=== PATIENT | female | born 2000 | race Asian ===

== ENCOUNTER 2020-07-18 23:04 | Observation (INO) ==
[2020-07-18] MEDS ORDERED: DICYCLOMINE HCL 10 MG CAP PO ONE (23:40)
[2020-07-18] MEDS ORDERED: KETOROLAC 30 MG/ML VIAL IV STA (23:40)
[2020-07-18] MEDS ORDERED: SODIUM CHLORIDE 0.9% 1000ML 1,000 ML IV ONE (23:40)
--- NOTE | 2020-07-18 23:54 | Emergency Department Note ---
History of Present Illness General Chief Complaint: Abdominal Pain Stated Complaint: ABD PAIN - PAINFUL Time Seen by Provider: 07/18/20 23:21 Source: patient Mode of arrival: ambulatory Limitations: no limitations History of Present Illness Provider Complaint: abdominal pain Onset (ago): greater than 10 hour(s) Pain Consistency: constant Location: suprapubic Radiation: none Migration to: epigastric Severity: moderate Maximum Pain Intensity: 7 Current Pain Intensity: 7 Quality: + cramping and + stabbing Relieved By: + nothing Exacerbated By: + eating and + bowel movement Associated Symptoms: + dysuria Treatments prior to arrival: NSAIDs (200mg ibuprofen 6-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 The patient states the pain began in the suprapubic area this morning and was very mild. It has been intermittent throughout the day, and she lay down to take a nap and was feeling okay when she awoke. She got out of bed to go to the bathroom and developed sudden onset of very severe pain, causing her to bend over in order to ambulate to the bathroom. The patient states she was having difficulty moving her bowels due to the pain and since this time, it has been more constant. The patient states the pain is now radiating throughout the entire abdomen in the upper abdomen, lower abdomen, as well as suprapubically. She describes it as a cramping and sharp sensation, but different than her menstrual cramps. The patient does report pain with bowel movements and dysuria prior to arrival, but when providing a urine sample here in the ED, she did not have any dysuria at that time. The patient states having a bowel movement did seem to make the pain better afterward, but the pain was worse during the bowel movement. She denies any associated diarrhea or constipation. Last menstrual period was 1 month ago. The patient is sexually active with one male partner and does not use protection or contraception. Patient does admit to alcohol use 2 nights ago. She denies any drug or tobacco use. Patient has taken 200 mg ibuprofen approximately 6 to 7 hours prior to arrival without relief. Related Data Date of Last Menstrual Period: 06/20/20 Patient Confirmed : No Home Medications Home Medications Medication Instructions Recorded Confirmed Type dextroamphetamine-amphetamine 20 mg PO QAM 01/15/20 07/19/20 History [Adderall XR] hydroxyzine HCl 25 mg PO Q6 PRN 01/15/20 07/19/20 History cetirizine [Zyrtec] 10 mg PO DAILY 07/19/20 07/19/20 History Allergies Allergy/AdvReac Type Severity Reaction Status Date / Time No Known Allergies Allergy Unverified 01/15/20 16:13 Past Med/Surg History Medical History No pertinent past medical history Surgical History No pertinent past surgical history Family History Other No significant family history Social History Smoking Status: Never smoker Preferred Language: Qatari Feels Safe at Home: Yes Review of Systems A total of 10 systems reviewed and were otherwise negative Physical Exam Vital Signs: Vital Signs - 24 hr 07/18/20 23:09 07/19/20 00:07 07/19/20 01:25 Temperature 36.5 C Temperature Source Oral Pulse Rate 68 Pulse Rate [Finger ] 59 L Respiratory Rate 16 16 Respiratory Effort / Characteristics Non-Labored Sponta neous Respiratory Depth Normal Blood Pressure 112/79 Blood Pressure [Ri ght Arm] 109/68 Blood Pressure Dahlia n 90 Blood Pressure Dahlia n [Right Arm] 81 Pulse Oximetry 100 98 100 Oxygen Delivery Me thod Room Air Room Air Room Air Sepsis Recent Feve r Within 48 Hours No Sepsis New/Unexpla ined Change in Men pacheco Status No Sepsis Action Take n by Nursing No Action Required 07/19/20 03:19 07/19/20 05:11 Temperature Temperature Source Pulse Rate Pulse Rate [Finger ] 59 L 68 Respiratory Rate 16 18 Respiratory Effort / Characteristics Non-Labored Sponta neous Non-Labored Sponta neous Respiratory Depth Normal Normal Blood Pressure Blood Pressure [Ri ght Arm] 113/63 97/49 L Blood Pressure Dahlia n Blood Pressure Dahlia n [Right Arm] 79 65 Pulse Oximetry 100 100 Oxygen Delivery Me thod Room Air Room Air Sepsis Recent Feve r Within 48 Hours Sepsis New/Unexpla ined Change in Men pacheco Status Sepsis Action Take n by Nursing Physical Exam: VITALS: Vitals are noted on the nurse's note and reviewed by myself. Vital signs stable. GENERAL: This is a 19-year-old female, in no acute distress, nondiaphoretic, well-developed well-nourished. SKIN: The skin was without rashes, erythema, edema, or bruising. There is no tenting of the skin. Capillary refill less than 2 seconds. HEAD: Normocephalic atraumatic. EYES: Conjunctivae without injection, sclerae without icterus. NECK: Supple without nuchal rigidity. No lymphadenopathy. No JVD. HEART: Regular rate and rhythm without murmurs gallops or rubs. LUNGS: Clear to auscultation bilaterally without wheezes, rales or rhonchi. No retractions or accessory muscle use. ABDOMEN: Positive bowel sounds x 4. Normal tympanic percussion. Generalized tenderness to palpation. There is guarding diffusely. The abdomen is otherwise without masses or organomegaly. Ortiz sign negative. No rebound tenderness. No CVA tenderness. ADJUNCT PHYSICAL EDUCATION INSTRUCTOR - (An RN nurse engineering technical analyst was present throughout the entire ADJUNCT PHYSICAL EDUCATION INSTRUCTOR procedure.) SPECULUM EXAM: - Water-soluble lubricant was applied to the plastic speculum and inserted into the vagina in a downward fashion towards the location of the cervix. When resistance was met, the speculum was opened to visualize the cervix. The cervical os was closed and without drainage. No lesions, masses, or purulent discharge noted. The speculum was slowly removed to visualize the vaginal christopher. No lesions, masses, or excoriations noted. Pt tolerated the procedure well and voiced no discomfort throughout the procedure. BIMANUAL EXAM: - MONS - Claudy Stage V. No lesions or growths noted. No palpable inguinal lymph nodes. - VULVA - skin color consistent with surrounding structures. No signs of irritation, edema, lesions, growths, or discharge. No vulvar or clitoral adhes ions. No tenderness to palpation. - PERINEUM -no growths or lesions. Skin intact without breakdown or scars. - BARTHOLIN'S GLANDS/SKENE'S GLANDS -no enlargement or discharge noted. No tenderness with palpation. - URETHRA -no erythema, edema, discharge, or blood noted. - VAGINA - [place] and moist without lesions, vesicles, discharge, or growths noted. - CERVIX -no cervical motion tenderness appreciated. - UTERUS - Palpable and tender. - ADNEXA -no masses noted with palpation. The patient was very tender with palpation of the right adnexa. - RECTO-VAGINAL - No fissures, masses, or hemorrhoids visualized on minimal exam. MUSCULOSKELETAL: No muscle atrophy, erythema, or edema noted. Full range of motion without joint tenderness in all extremities. No tenderness to palpation. Normal gait. Strength 5/5 throughout. NEURO: Patient was alert and oriented to person place and time. No focal neurological deficits. Course Course The patient was seen and evaluated as above. An order was placed for continuous cardiac monitoring. The monitor shows a normal sinus rhythm at a rate of 68 bpm. IV access obtained, labs drawn. Patient medicated with p.o. dicyclomine, IV Toradol, IV fluids. CT imaging performed and reviewed by myself and radiologist as noted. Labs reviewed by myself. I discussed the findings with the patient at bedside. She was reassessed. Pelvic examination completed. I discussed the case with Dr. Price, WEED CUTTER. He is requesting an ultrasound of the pelvis to further evaluate the hemoperitoneum and ovarian cyst. Ultrasound completed and reviewed by myself and radiologist as noted. I again discussed the case with Dr. Price. He will see the patient and likely be taking her to the OR. I discussed this recommendation with the patient at bedside. I discussed the case with my attending. The patient was seen by Dr. Price. He will be taking the patient to the OR. Please see his dictation for ongoing management and care. Administered Medications Discontinued Medications Dicyclomine HCl (Dicyclomine Hcl 10 Mg Cap) 20 mg PO NOW ONE Stop: 07/18/20 23:41 Last Admin: 07/19/20 00:08 Dose: 20 mg Documented by: [id number] Sodium Chloride (Nss 1000ml) 1,000 mls @ 999 mls/hr IV .Q1H1M ONE Stop: 07/19/20 00:40 Last Infusion: 07/19/20 01:24 Dose: 0 mls/hr Documented by: [id number] Admin: 07/19/20 00:08 Dose: 999 mls/hr Documented by: [id number] Ioversol (Ioversol 100ml) 93 ml IV ONCE ONE Stop: 07/19/20 02:40 Last Admin: 07/19/20 02:39 Dose: 93 ml Documented by: [id number] Ketorolac Tromethamine (Ketorolac 30 Mg/Ml Vial) 30 mg IV NOW STA Stop: 07/18/20 23:41 Last Admin: 07/19/20 00:08 Dose: 30 mg Documented by: [id number] Medical Decision Making Differential Diagnosis + peptic ulcer disease, + biliary pathology, + UTI, + obstruction, + mesenteric ischemia, + aortic pathology, + infections, + inflammatory bowel disease, + renal colic, + ectopic (female), + ovarian torsion (female), + tubo- ovarian abscesses (female), + pelvic inflammatory disease (female), + abdominal pain, + appendicitis, + calculus of kidney, + constipation, + diverticulitis, + endometriosis, + gastroenteritis, + pancreatitis and + small bowel obstruction Medical Records Attestation: I reviewed the patient's medical records. Home Medications Current Medication List: was personally reviewed by me Laboratory Data Attestation: I reviewed the patient's lab results. Mild leukocytosis of 11,000. No anemia or thrombocytopenia. Renal, hepatic fu nction and electrolytes without significant abnormality. Lipase 68. Urinalysis negative. Urine test negative. Result diagrams: 07/18/20 23:56 07/18/20 23:56 Lab Results 07/18/20 07/18/20 07/18/20 Range/Units 23:56 23:56 23:56 WBC 11.52 H (4.8-10.8) K/uL RBC 4.25 (4.2-5.4) M/uL Hgb 12.9 (12.0-16.0) g/dL Hct 39.2 (37-47) % MCV 92.2 (80-100) fL MCH 30.4 (25-34) pg MCHC 32.9 (32-36) g/dL RDW Std Deviation 44.2 (36.4-46.3) fL RDW Coeff of Nicole 13.1 (11.5-14.5) % Plt Count 270 (130-400) K/uL MPV 9.3 (7.4-10.4) fL Immature Gran % (Auto) 0.3 % Neut % (Auto) 74.8 % Lymph % (Auto) 17.5 % Porter % (Auto) 5.7 % Eos % (Auto) 1.6 % Baso % (Auto) 0.1 % Neut # (Auto) 8.61 H (1.4-6.5) K/uL Lymph # (Auto) 2.02 (1.2-3.4) K/uL Porter # (Auto) 0.66 H (0.11-0.59) K/uL Eos # (Auto) 0.19 (0-0.5) K/uL Baso # (Auto) 0.01 (0-0.2) K/uL Immature Gran # (Auto) 0.03 H (0.00-0.02) K/uL Sodium 142 (136-145) mmol/L Potassium 4.0 (3.5-5.1) mmol/L Chloride 109 H (98-107) mmol/L Carbon Dioxide 28 (21-32) mmol/L Anion Gap 5.0 (3-11) BUN 12 (7-18) mg/dl Creatinine 0.83 (0.6-1.2) mg/dl Est Cr Clr Drug Dosing 91.6 ml/min Est GFR ( Amer) 117.7 Est GFR (Non-Af Amer) 101.5 BUN/Creatinine Ratio 14.1 (10-20) Glucose 100 H (70-99) mg/dl Calcium 9.2 (8.5-10.1) mg/dl Total Bilirubin 0.3 (0.2-1) mg/dl AST 9 L (15-37) U/L ALT 15 (12-78) U/L Alkaline Phosphatase 52 (45-117) U/L Total Protein 7.0 (6.4-8.2) gm/dl Albumin 3.6 (3.4-5.0) gm/dl Globulin 3.4 (2.5-4.0) gm/dl Albumin/Globulin Ratio 1.0 (0.9-2) Lipase 68 L (73-393) U/L Urine Color Yellow Urine Appearance Clear (Clear) Urine pH 6.5 (4.5-7.5) Ur Specific [place] 1.044 H (1.000-1.030) Urine Protein Negative (Negative) Urine Glucose (UA) Negative (Negative) Urine Ketones Negative (Negative) Urine Blood Negative (Negative) Urine Nitrite Negative (Negative) Urine Bilirubin Negative (Negative) Urine Urobilinogen Negative (Negative) Ur Leukocyte Esterase Negative (Negative) POC Ur Test (NEG) 07/18/20 Range/Units 23:56 WBC (4.8-10.8) K/uL RBC (4.2-5.4) M/uL Hgb (12.0-16.0) g/dL Hct (37-47) % MCV (80-100) fL MCH (25-34) pg MCHC (32-36) g/dL RDW Std Deviation (36.4-46.3) fL RDW Coeff of Nicole (11.5-14.5) % Plt Count (130-400) K/uL MPV (7.4-10.4) fL Immature Gran % (Auto) % Neut % (Auto) % Lymph % (Auto) % Porter % (Auto) % Eos % (Auto) % Baso % (Auto) % Neut # (Auto) (1.4-6.5) K/uL Lymph # (Auto) (1.2-3.4) K/uL Porter # (Auto) (0.11-0.59) K/uL Eos # (Auto) (0-0.5) K/uL Baso # (Auto) (0-0.2) K/uL Immature Gran # (Auto) (0.00-0.02) K/uL Sodium (136-145) mmol/L Potassium (3.5-5.1) mmol/L Chloride (98-107) mmol/L Carbon Dioxide (21-32) mmol/L Anion Gap (3-11) BUN (7-18) mg/dl Creatinine (0.6-1.2) mg/dl Est Cr Clr Drug Dosing ml/min Est GFR ( Amer) Est GFR (Non-Af Amer) BUN/Creatinine Ratio (10-20) Glucose (70-99) mg/dl Calcium (8.5-10.1) mg/dl Total Bilirubin (0.2-1) mg/dl AST (15-37) U/L ALT (12-78) U/L Alkaline Phosphatase (45-117) U/L Total Protein (6.4-8.2) gm/dl Albumin (3.4-5.0) gm/dl Globulin (2.5-4.0) gm/dl Albumin/Globulin Ratio (0.9-2) Lipase (73-393) U/L Urine Color Urine Appearance (Clear) Urine pH (4.5-7.5) Ur Specific [place] (1.000-1.030) Urine Protein (Negative) Urine Glucose (UA) (Negative) Urine Ketones (Negative) Urine Blood (Negative) Urine Nitrite (Negative) Urine Bilirubin (Negative) Urine Urobilinogen (Negative) Ur Leukocyte Esterase (Negative) POC Ur Test NEG (NEG) Imaging Data Radiologist's Impression: CT ABDOMEN & PELVIS With Contrast: Findings are most compatible with hemoperitoneum secondaryto a ruptured ovarian cyst. Small to moderate free fluid in abdomen and pelvis, denser than simple fluid and with densest fluid in pelvis. There is a 2.8 cm right ovarian cyst with focal peripheral enhancement versus active extravasation. Appendix is normal in caliber. No free air. No bowel obstruction. The liver, spleen, pancreas, gallbladder and kidneys are unremarkable. Radiologist: Elias Forde MD US PELVIS: Comparison:CT abdomen and pelvis earlier same day Right ovarian complex cyst measuring up to 3.4 cm. Left ovary is within normal limits. Blood flow demonstrated in bilateral ovaries. Complex free fluid, compatible with hemoperitoneum. The uterus is normal in size. The endometrium is normal in thickness, measuring 9 mm. Radiologist: Elias Forde MD Blood Pressure Blood Pressure Findings: Normal blood pressure MDM Narrative This 19-year-old female patient presents to the emergency department today for evaluation of abdominal pain. The pain has been waxing and waning, but started very mild yesterday morning. Symptoms have been progressively worsening throughout the day and she had a very severe episode of pain while walking to the bathroom after a nap this evening. This prompted her to come to the emergency department. Patient symptoms did seem to be associated with some cramping and bowel movements, and has now spread more diffusely throughout the abdomen, so initial concern for GI etiology. Patient was medicated with p.o. dicyclomine and IV Toradol. CT imaging completed and consistent with a 2.8 cm right ovarian cyst with focal peripheral enhancement versus active extravasation as well as a small to moderate amount of free fluid in the abdomen and pelvis most compatible with hemoperitoneum. This is thought to be from a ruptured ovarian cyst. I did discuss case with the WEED CUTTER who requested a pelvic ultra sound to be completed. This was completed and consistent with CT findings. The patient was seen by the WEED CUTTER and will go to the operating room for further management. Please see WEED CUTTER dictation regarding ongoing management and care as well as final disposition of this patient. The chart was completed utilizing Q Interactive Speech voice recognition software. Grammatical errors, random word insertions, pronoun errors, and incomplete sentences are an occasional consequence of this system due to software limitations, ambient noise, and hardware issues. Any formal questions or concerns about the content, text, or information contained within the body of this dictation should be directly addressed to the provider for clarification. Impression & Plan Abdominal pain, Hemoperitoneum, Hemorrhagic ovarian cyst Discharge Plan Visit Data Chief Complaint: Abdominal Pain Stated Complaint: ABD PAIN - PAINFUL ED Provider: Allyn Hernandez ED Midlevel Provider: Melisa Bustos Discharge Problem: Abdominal pain, Hemoperitoneum, Hemorrhagic ovarian cyst Patient Disposition: Being Evaluated by Surgeon Forms Stand Alone Forms: [facility] Prescriptions Prescriptions: No Action cetirizine [Zyrtec] 10 mg tablet 10 mg PO DAILY RF: 0 dextroamphetamine-amphetamine [Adderall XR] 20 mg Capsule,Extended Release 24hr 20 mg PO QAM RF: 0 hydroxyzine HCl 25 mg Tablet 25 mg PO Q6 PRN (Reason: Anxiety) RF: 0 Referrals Referrals: Devaughn Duncan MD [Primary Care Provider] -
[2020-07-19 00:09] LABS: Appearance Urine Clear (Clear); Bilirubin Urine Negative (Negative); Blood Urine Negative (Negative); Color Urine Yellow; Glucose Urine UA Negative (Negative); Ketones Urine Negative (Negative); Leukocyte Esterase Urine Negative (Negative); Nitrite Urine Negative (Negative); Protein Urine Negative (Negative); Specific Gravity Urine 1.044 (1.000-1.030); Urobilinogen Urine Negative (Negative); pH Urine 6.5 (4.5-7.5)
[2020-07-19 00:12] LABS: Basophils # (auto) 0.01 K/uL (0-0.2); Basophils % (auto) 0.1 %; Eosinophils # (auto) 0.19 K/uL (0-0.5); Eosinophils % (auto) 1.6 %; Hematocrit (blood only) 39.2 % (37-47); Hemoglobin 12.9 g/dL (12.0-16.0); Immature Granulocytes # (auto) 0.03 K/uL (0.00-0.02); Immature Granulocytes % (auto) 0.3 %; Lymphocytes # (auto) 2.02 K/uL (1.2-3.4); Lymphocytes % (auto) 17.5 %; Mean Corpuscular Hemoglobin 30.4 pg (25-34); Mean Corpuscular Hgb Conc 32.9 g/dL (32-36); Mean Corpuscular Volume 92.2 fL (80-100); Mean Platelet Volume 9.3 fL (7.4-10.4); Monocytes # (auto) 0.66 K/uL (0.11-0.59); Monocytes % (auto) 5.7 %; Neutrophils # (auto) 8.61 K/uL (1.4-6.5); Neutrophils % (auto) 74.8 %; Platelet Count 270 K/uL (130-400); RDW Coefficient of Variation 13.1 % (11.5-14.5); RDW Standard Deviation 44.2 fL (36.4-46.3); Red Blood Count 4.25 M/uL (4.2-5.4); White Blood Count 11.52 K/uL (4.8-10.8)
[2020-07-19 00:28] LABS: Albumin Level 3.6 gm/dl (3.4-5.0); BUN Creatinine Ratio 14.1 (10-20); Calcium 9.2 mg/dl (8.5-10.1); Creatinine Clr Calc Pharmacy 91.6 ml/min; Est GFR (African American) 117.7; Est GFR (Non-African American) 101.5
[2020-07-19 00:31] LABS: Bilirubin,Total 0.3 mg/dl (0.2-1); Globulin 3.4 gm/dl (2.5-4.0)
[2020-07-19] MEDS ORDERED: IOVERSOL 100ml IV ONE (02:39)
[2020-07-19] MEDS ORDERED: MIDAZOLAM HCL 1 MG/ML 2ML VIAL ONE (07:38)
[2020-07-19] MEDS ORDERED: fentaNYL citrate 100 MCG/2 ML VIAL ONE (07:38)
[2020-07-19] MEDS ORDERED: ONDANSETRON INJ 2 MG/ML 2 ML VIAL ONE (07:38)
[2020-07-19] MEDS ORDERED: DEXAMETHASONE SOD INJ 4 MG/ML VIAL ONE (07:38)
[2020-07-19] MEDS ORDERED: LIDOCAINE HCL 2% 2 ML VIAL/AMP(20MG/ML) INFIL ONE (07:38)
[2020-07-19] MEDS ORDERED: GLYCOPYRROLATE 0.2 MG/ML VIAL ONE (07:38)
[2020-07-19] MEDS ORDERED: PROPOFOL IV EMULSION 10 MG/ML 20 ML VIAL IV ONE (07:38)
[2020-07-19] MEDS ORDERED: NEOSTIGMINE METHYLSULFATE 5 MG/5 ML SYR ONE (07:38)
--- NOTE | 2020-07-19 07:54 | Anesthesiology Consultation ---
Date of Service July 19, 2020 Assessment & Plan ASA ASA2E Proposed Anesthesia Anesthesia Type: General Risk / Benefits Reviewed With: PT / POA / Parent / Guardian, Accepts Plan and Informed Consent Obtained History Surgery Operation Date: 07/19/20 08:00 Proposed Procedures p Diafnostic Laparoscopy, Evacuation of Hemoperitoneum, Ruptured Right Ovarian Cyst - Lee Price MD Height/Weight Height: 5 ft 1 in Weight: 62.5 kg Allergies Allergy/AdvReac Type Severity Reaction Status Date / Time No Known Allergies Allergy Unverified 01/15/20 16:13 Medications Home Medications Medication Instructions Recorded Confirmed Last Taken dextroamphetamine-amphetamine 20 mg PO QAM 01/15/20 07/19/20 01/15/20 [Adderall XR] hydroxyzine HCl 25 mg PO Q6 PRN 01/15/20 07/19/20 Unknown cetirizine [Zyrtec] 10 mg PO DAILY 07/19/20 07/19/20 Unknown Past Medical History Medical History No pertinent past medical history Exercise / Class Metabolic Activity II 4-5 Yardwork/Stairs/Walk up hill Past Family History Family History Other No significant family history Past Surgical History Surgical History No pertinent past surgical history Past Anesthesia History No Hx of Anesthesia Complications and No Family Hx of Anesthesia Complications History of PONV No Hx of PONV and No Hx of Motion Sickness Social History Smoking Status: Never smoker Review of Systems denies fever/cough/ colds/ chest pain/ SOB/ SHAE Constitutional: no fever and no chills Respiratory: no cough and no dyspnea denies SHAE Cardiovascular: no chest pain and no dyspnea on exertion Physical Exam Vital Signs Last Vital Signs Temp 36.5 C 07/18/20 23:09 Pulse 62 07/19/20 07:39 Resp 18 07/19/20 07:39 BP 109/57 L 07/19/20 07:39 Pulse Ox 100 07/19/20 07:39 ENMT Mouth: + small oral opening; no TMJ abnormality and no dentition abnormality Thyromental Distance: < 3.5 Finger Breadths Mallampati Class: II Neck neck extension not limited Respiratory normal respiratory effort; no respiratory distress Auscultation: lungs clear to auscultation bilaterally Cardiovascular Rate/Rhythm: regular rate and regular rhythm Neurologic moves all extremities Psychiatric Orientation: alert and oriented x 3 Testing Laboratory Results 07/18/20 23:56 10 23:56 Urine Color Yellow 07/18/20 23:56 Urine Appearance Clear (Clear) 07/18/20 23:56 Urine pH 6.5 (4.5-7.5) 07/18/20 23:56 Ur Specific [place] 1.044 (1.000-1.030) H 07/18/20 23:56 Urine Protein Negative (Negative) 07/18/20 23:56 Urine Glucose (UA) Negative (Negative) 07/18/20 23:56 Urine Ketones Negative (Negative) 07/18/20 23:56 Urine Nitrite Negative (Negative) 07/18/20 23:56 Ur Leukocyte Esterase Negative (Negative) 07/18/20 23:56 07/18/20 23:56 POC Ur Test NEG
[2020-07-19] MEDS ORDERED: ATROPINE SULFATE 0.1 MG/ML 10ML SYR IV PRN (07:55)
[2020-07-19] MEDS ORDERED: HYDROmorphone INJ 2 MG/ML SYR/VIAL IV PRN (07:55)
[2020-07-19] MEDS ORDERED: ONDANSETRON INJ 2 MG/ML 2 ML VIAL IV PRN ×2 (07:55→07:58)
[2020-07-19] MEDS ORDERED: ePHEDrine sulfate 50 MG/ML AMP IV PRN (07:55)
[2020-07-19] MEDS ORDERED: fentaNYL citrate 100 MCG/2 ML VIAL IV PRN (07:55)
[2020-07-19] MEDS ORDERED: PROMETHAZINE HCL 12.5 MG in SODIUM CHLORIDE 0.9% 50 ML IV PRN (07:55)
[2020-07-19] MEDS ORDERED: BUPIVACAINE 0.5 % 5 MG/1 ML MPF 30ML VIAL ONE (07:56)
--- NOTE | 2020-07-19 08:04 | History & Physical Report ---
Date of Service July 19, 2020 Assessment & Plan (1) Abdominal pain: (2) Hemorrhagic ovarian cyst: Laparoscopy with evacuation of hemoperitoneum Present on Admission?: Yes (3) No pertinent past surgical history: (4) No pertinent past medical history: History of Present Illness 19 F P0000 LMP 5 weeks ago who presents to ER with lower abdominal pain and noted this after having intercourse yesterday morning. She is not on control and her test is negative. No significant past medical history. Had Covid-19 in January of this year. Primary Care Provider: Devaughn Duncan MD Allergies Allergy/AdvReac Type Severity Reaction Status Date / Time No Known Allergies Allergy Unverified 01/15/20 16:13 Home Medications Home Medications Medication Instructions Recorded Confirmed Type dextroamphetamine-amphetamine 20 mg PO QAM 01/15/20 07/19/20 History [Adderall XR] hydroxyzine HCl 25 mg PO Q6 PRN 01/15/20 07/19/20 History cetirizine [Zyrtec] 10 mg PO DAILY 07/19/20 07/19/20 History Past Med/Surg History Medical History (Updated 07/19/20 @ 08:04 by Lee Price MD) No pertinent past medical history Surgical History No pertinent past surgical history Family History Other No significant family history Social History Smoking Status: Never smoker Preferred Language: Persian Feels Safe at Home: Yes Review of Systems Review of Systems: All systems reviewed & are unremarkable except as noted in HPI & below abdominal pain generalized with more pain on right than left Physical Exam Constitutional: WD/WN, vitals as above comfortable Results & Data Results & Data ([facility]) Vital Signs (Past 12 Hours) Vital Signs Temp Pulse Pulse Resp BP BP Pulse Ox 07/19/20 07:39 62 18 109/57 L 100 07/19/20 05:11 68 18 97/49 L 100 07/19/20 03:19 59 L 16 113/63 100 07/19/20 01:25 59 L 16 109/68 100 07/19/20 00:07 98 07/18/20 23:09 36.5 C 68 16 112/79 100 Code Status & VTE Plan VTE Prophylaxis Plan VTE Prophylaxis will be ordered: No (1) Abdominal pain Abdominal location: generalized Qualified Code(s): R10.84 - Generalized abdominal pain
--- NOTE | 2020-07-19 08:07 | CT Scan Report ---
ABDOMEN AND PELVIS CT WITH IV AND ORAL CONTRAST CT DOSE: 305.84 mGy.cm HISTORY: Generalized abdominal pain. TECHNIQUE: Multiaxial CT images of the abdomen and pelvis were performed following the use of intrave nous and oral contrast. A dose lowering technique was utilized adhering to the principles of ALARA. COMPARISON STUDY: None. FINDINGS: The lung bases are clear. No pneumoperitoneum. No pneumatosis. No fractures within the visu alized osseous structures. The liver, gallbladder, spleen, adrenal glands, pancreas, and kidneys are within normal limits. No hydronephrosis. No retroperitoneal lymphadenopathy. The bladder is unremarka ble. The uterus and left ovary are within normal limits. There is a 2.6 cm hypodense lesion within th e right ovary likely representing a cyst. This demonstrates a small amount of peripheral enhancement versus less likely active extravasation. There is a small to moderate amount of hemoperitoneum seen w ithin the pelvis along the paracolic gutters and within the perihepatic/perisplenic locations. IMPRESSION: 1. Small to moderate hemoperitoneum. 2. There is a 2.2 cm hypodense lesion within the right adnexa likely representing an ovarian cyst. Th is demonstrates a small amount of peripheral enhancement versus less likely active extravasation. The refore, these findings are likely secondary to a ruptured ovarian cyst. Recommend correlation with be ta-hCG to exclude the possibility of a ruptured ectopic . ACT 112: Negative or not required by law. Electronically signed by: Chago Caruso M.D. 07/19/2020 8:06 AM
--- NOTE | 2020-07-19 08:52 | XRay Report ---
XR KUB/Abdomen 1 view CLINICAL HISTORY: Abdominal pain COMPARISON STUDY: No previous studies for comparison. FINDINGS: There are no transition zones indicate bowel obstruction. There is no pathologic bowel dila tation. There are scattered colonic stool. No abnormal abdominal calcifications are visualized. IMPRESSION: Nonobstructive bowel gas pattern. ACT 112: Negative or not required by law. Electronically signed by: Herrera Staton M.D. 07/19/2020 8:51 AM
--- NOTE | 2020-07-19 08:56 | History and Physical Report ---
DATE OF ADMISSION: 07/19/2020 REASON FOR ADMISSION AND CHIEF COMPLAINT: Abdominal pain. HISTORY OF PRESENT ILLNESS: The patient is a 19-year-old female 0, para 0, last menstrual period about 5 weeks ago. Her test is negative. She presents with right-sided abdominal pain and vague abdominal pain. She had intercourse yesterday in the morning, pain subsequently followed this. She was sent to the ER with pain, some mild discomfort and some mild difficulty in breathing secondary to her pain. PAST MEDICAL HISTORY: Significant for COVID being positive in January. PAST SURGICAL HISTORY: Negative. REVIEW OF SYSTEMS: She denies any nausea, vomiting, diarrhea or constipation. No control use currently. No urinary symptoms at the present time. Pain is generalized in the abdomen with more pain on the right than in the left. SOCIAL HISTORY: Denies smoking or drug use and admits to alcohol use. MEDICATIONS: None currently. Home medications include Zyrtec 10 mg p.o. daily, Adderall 20 mg p.o. q.a.m. as needed and hydroxyzine 25 mg p.o. every 6 hours as needed. ALLERGIES: No known drug allergies. LABORATORIES: White blood cell count 11.5, hemoglobin is 12.9, hematocrit is 39.2, platelet count is 270. Her test is negative. COVID test is pending. She did have a positive COVID test in January of this year. IMAGING STUDIES: CT scan of the abdomen and pelvis and an ultrasound were done. These both revealed hemoperitoneum with appearance of a ruptured right hemorrhagic ovarian cyst. Otherwise, uterus and remainder of the study were negative. PHYSICAL EXAMINATION: VITAL SIGNS: Blood pressure is 97/49, pulse of 68, respiration 18, temperature 36.5, O2 sat 100 on room air. HEENT: Within normal limits. LUNGS: Clear to auscultation. CARDIOVASCULAR: Regular rate and rhythm. ABDOMEN: Soft, but there is some tenderness in all 4 quadrants and there is some lower tenderness on the right, specifically with some guarding noted. EXTREMITIES: Within normal limits. No edema. Negative Homans. NEUROLOGICAL: Intact. ASSESSMENT: Probable hemorrhagic right ovarian cyst with hemoperitoneum. PLAN: Operative laparoscopy with the evacuation of hemoperitoneum and control of bleeding of the ovary. This plan was discussed with the patient and her partner in detail. Consents were signed and a COVID test will be done preop.
--- NOTE | 2020-07-19 09:02 | Ultrasound Report ---
EXAMINATION: PELVIC ULTRASOUND CLINICAL HISTORY: Hemoperitoneum. COMPARISON STUDY: CT scan the abdomen and pelvis dated 07/19/2020. FINDINGS: The uterus measured 7.5 x 4.1 x 4.8 cm. The endometrial stripe measured 9 mm. The right ovary measured 53 x 38 x 29 mm.. There is a thick-walled complex 34 mm right ovarian cyst. The left ovary measured 41 x 18 x 20 mm.. There is no ultrasonographic evidence of ovarian torsion. It should be noted that ovarian torsion can be present with normal Doppler ultrasonographic findings. There is free fluid visualized within both adnexal regions and cul-de-sac. The fluid appeared complex , possibly hemorrhagic. IMPRESSION: 1. No uterine abnormalities identified 2. Complex free fluid possibly hemorrhagic 3. 34 mm complex right ovarian cyst ACT 112: Negative or not required by law. Electronically signed by: Herrera Staton M.D. 07/19/2020 9:01 AM
[2020-07-19] MEDS ORDERED: FLOSEAL HEMOSTATIC MATRIX 10ML TOP ONE (09:13)
--- NOTE | 2020-07-19 09:41 | Post Operative Brief Note ---
Immediate Post Op Note v1 Date of Surgery July 19, 2020 Pre & Post Diagnosis Operation Date: 07/19/20 08:00 Pre-Op Diagnosis: Ruptured Right Ovarian Cyst, hemoperitoneum Post-Op Diagnosis: Ruptured Right Ovarian Cyst, hemoperitoneum I identified the patient and participated in the time-out.: Yes Procedure Operation Date: 07/19/20 08:00 Actual ProcedurE Operative laparoscopy with evacuation of hemoperitoneum, bipolar cautery of hemorrhagic right ovarian cyst Lee Price MD Surgeon Lee Price MD Screen Making Supervisor Yessica WILSON Estimated Blood Loss 500 Findings Consistent with Post-Op Diagnosis hemoperitoneum hemorrhagic right ovarian cyst Fluids 1000 ml. Specimens none Anesthesia Type General Complications none Disposition Accompanied Patient To Recovery: Yes Disposition: PCU Overlapping Procedure I was present for: the critical portions of procedure. I was immediately available: during the entire case. Back up surgeon: was not required during procedure.
[2020-07-19] MEDS ORDERED: IBUPROFEN 600 MG TAB PO PRN (09:44)
[2020-07-19] MEDS ORDERED: ACETAMINOPHEN 1,000 MG/100 ML VIAL IV PRN (09:44)
[2020-07-19] MEDS ORDERED: MoRPHine SULFATE 2 MG/ML CARP IV PRN (09:44)
[2020-07-19] MEDS ORDERED: LACTATED RINGER'S 1,000 ML IV SCH (09:45)
--- NOTE | 2020-07-19 10:09 | Anesthesiology Progress Note ---
Date of Service July 19, 2020 Anesthesia Post Procedure Vital Signs Vital Signs: Temp Pulse Pulse Pulse Resp BP BP 07/19/20 10:00 70 16 110/61 07/19/20 09:50 71 16 112/65 07/19/20 09:43 36.1 C L 95 H 16 111/52 L 07/19/20 07:39 62 18 109/57 L 07/19/20 05:11 68 18 97/49 L 07/19/20 03:19 59 L 16 113/63 07/19/20 01:25 59 L 16 109/68 07/19/20 00:07 07/18/20 23:09 36.5 C 68 16 112/79 Pulse Ox 07/19/20 10:00 100 07/19/20 09:50 100 07/19/20 09:43 99 07/19/20 07:39 100 07/19/20 05:11 100 07/19/20 03:19 100 07/19/20 01:25 100 07/19/20 00:07 98 07/18/20 23:09 100 Pain Intensity Abdomen: Pain Intensity: 6 Transfer of Care Handoff Completed per policy Notes Mental Status: alert / awake / arousable and participated in evaluation Patient Amnestic to Procedure: Yes Nausea / Vomiting: adequately controlled Pain: adequately controlled Airway Patency, RR, SpO2: stable & adequate BP & HR: stable & adequate Hydration State: stable & adequate Anesthetic Complications: no major complications apparent and Pt Satisfied with anesthetic care
[2020-07-19] MEDS ORDERED: COUGH DROP (SUGAR FREE) LOZ 24 LOZ/1 BOX BUCCAL ONE (14:46)
--- NOTE | 2020-07-19 19:51 | Operative Report (OR) ---
DATE OF OPERATION: 07/19/2020 PREOPERATIVE DIAGNOSES: Hemoperitoneum and ruptured right ovarian cyst. POSTOPERATIVE DIAGNOSES: Hemoperitoneum and ruptured right ovarian cyst. PROCEDURE: Operative laparoscopy with evacuation of hemoperitoneum, bipolar cautery of hemorrhagic right ovarian cyst. SURGEON: Lee Price MD. RECEIVING SUPERVISOR: KATIE Juan. ESTIMATED BLOOD LOSS: 500 mL. FINDINGS: Consistent with postop diagnoses, hemoperitoneum, hemorrhagic right ovarian cyst. FLUIDS: 1000 mL. SPECIMENS: None. ANESTHESIA: General. COMPLICATIONS: None. CLINICAL HISTORY: The patient is a 19-year-old female 0, para 0 who presents to the ER with right lower quadrant and generalized abdominal pain started yesterday approximately 10:00 a.m. after having intercourse. The patient was seen. CAT scan and ultrasound confirmed hemoperitoneum, fluid in the cul-de-sac and a right hemorrhagic ovarian cyst. The patient was taken to the OR. She was identified prior to the start of procedure, risks, benefits, and alternatives of the procedure were discussed with the patient and her boyfriend in the ER prior to the surgery. DESCRIPTION OF PROCEDURE: After satisfactory general endotracheal anesthesia, the patient was prepped and draped in usual sterile fashion. A catheter was then used to empty the bladder of approximately 400 mL of clear urine. Exam under anesthesia revealed the uterus to be normal in size without any evidence of any adnexal mass. A weighted speculum was then placed in the posterior vault of the vagina. A long Allis was placed on the anterior lip of the cervix and acorn intracervical manipulator was then placed. Attention was then directed abdominally where approximately 10 mL of 0.5% Marcaine were used infraumbilical and suprapubically in the midline. Stab wound was made with a #11 knife blade infraumbilical with a Veress needle inserted and tested with saline and then an artificial pneumoperitoneum with CO2 gas was obtained. After approximately 2.5 liters of CO2, the Veress needle was withdrawn. The incision was widened and the trocar with the scope was inserted under direct visualization. After insertion of the trocar, there was noted to be blood in the cul-de-sac with hemoperitoneum extending up towards the liver edge. A second puncture was made suprapubically with a 5 mm trocar. The data virtualization consultant was then inserted and extensive evacuation of clot and blood with suction irrigation was used. The ovary was identified on the right, there was a hemorrhagic ovarian cyst on the underside of the ovary. A third port was inserted on the left side under direct visualization. This was used to stabilize the ovary with a grasper. The bipolar Kleppinger forceps were then used to cauterize the cyst. After this was obtained, the cyst was irrigated to clear. There was no bleeding. Following this, FloSeal was then used to coat the cyst. No active bleeding was noted. A small amount of clot that was not able to be removed was left in place. There was a small area on the right hand side over the peritoneum over the bladder that was consistent with possible endometriosis. Still video photography was used to take this. Otherwise, no other lesions. The uterus was normal and the left ovary and tube were also normal. All remaining instruments were then removed. The ports were then closed with a deep 0 Vicryl suture for the infraumbilical incision followed by 4-0 Monocryl suture, Steri-Strips and 4 x 4s. Remaining vaginal instruments were removed. The final sponge, needle and instrument count were found to be correct. EBL 500 mL. Total fluids 1000 mL. The patient was then placed supine on a stretcher. She was discharged to the PACU in stable condition and she will be discharged to home later today when stable. I attest to the content of the Intraoperative Record and any orders documented therein. Any exception s are noted below.
[2020-07-20] MEDS ORDERED: DEXTROAMPHETAMINE/AMPHETAMINE ER 10 MG CAP PO SCH (09:00)
[2020-07-20] MEDS ORDERED: CETIRIZINE HCL 10 MG TABLET PO SCH (09:00)
--- NOTE | 2020-07-24 12:00 | Discharge Summary (DS) ---
REASON FOR ADMISSION AND HOSPITAL COURSE: The patient is a 19-year-old female 0, para 0, presents to the ER after noting acute abdominal pain the day before, progressively getting worse. The patient had an ultrasound and CAT scan revealing a hemoperitoneum and a possible hemorrhagic right ovarian cyst. The patient was taken to the operating room where an operative laparoscopy was performed. She had evacuation of hematoma and hemoperitoneum that was accumulated approximately 600 mL of blood in the abdomen extending up to the liver edge. The right ovarian cyst was noted to be hemorrhagic. It was cauterized with the bipolar cautery. The abdominal cavity and pelvic cavity were then irrigated copiously to get as much blood and blood clot out as possible. The patient tolerated the procedure well. She was discharged home in stable condition to follow up in the office in 1 week. FINAL DISCHARGE DIAGNOSES: Hemoperitoneum and hemorrhagic right ovarian cyst. MEDICATIONS: Motrin for pain. Regular diet on discharge and follow up as needed.
== END 2020-07-19 15:35 | disposition home or self-care (01) ==
LOC: ED 23:04 → 4S2 07-19 07:39 → ASU 07-19 07:39